=== PATIENT | female | born 1955 | race Two or more races ===

== ENCOUNTER 2022-02-07 17:13 | Emergency (ER) | payer OTHER ==
[~2022-02-07] VITALS: Ht 167.6 cm; Wt 70.0 kg
[2022-02-07] MEDS ORDERED: SODIUM CHLORIDE 0.9% 1,000 ML IV ONE (18:15)
[2022-02-07 18:40] LABS: Basophils # (auto) 0.1 10 ^3/uL (0-0.2); Eosinophils # (auto) 0.2 10 ^3/uL (0-0.8); Hemoglobin 13.9 g/dL (12.2-16.2); Lymphocytes # (auto) 2.9 10 ^3/uL (0.4-5.4); Monocytes # (auto) 0.8 10 ^3/uL (0-1.3); Neutrophils # (auto) 3.7 10 ^3/uL (1.6-8.6); Nucleated Red Blood Cells % 0.1 %; White Blood Cell 7.6 10^3/uL (4.4-10.8)
[2022-02-07 18:41] LABS: Hematocrit 41.4 % (36.0-46.0); Lymphocytes % (auto) 37.8 % (10.0-50.0); Mean Corpuscular Hemoglobin 34.3 pg (28.0-32.0); Mean Corpuscular Hgb Conc. 33.4 g/dL (32.0-36.0); Mean Corpuscular Volume 102.6 fL (80.0-100.0); Monocytes % (auto) 10.4 % (0.0-12.0); Neutrophils % (auto) 48.8 % (37.0-80.0); Red Blood Cells 4.04 10^6/uL (4.0-5.20); Red Cell Distribution Width 14.2 % (11.8-14.3)
[2022-02-07 18:56] LABS: Albumin 3.8 g/dL (3.4-5.0); BUN/Creatinine Ratio 18.4; Calcium 9.1 mg/dL (8.5-10.1)
[2022-02-07 18:59] LABS: Bilirubin, Total 0.4 mg/dL (0.2-1.0); Total Protein 7.2 g/dL (6.4-8.2)
[2022-02-07 19:02] LABS: Potassium 2.7 mmol/L (3.5-5.1)
[2022-02-07] MEDS ORDERED: POTASSIUM CHL 20 Meq TABLET PO ONE (20:30)
[2022-02-07] MEDS ORDERED: ceFAZolin 1GM/50ML 50 ML IV ONE (21:45)
[2022-02-07] MEDS ORDERED: ONDANSETRON HCL 4 MG/2 ML VIAL IV ONE (23:15)
[2022-02-07] MEDS ORDERED: HYDROmorphone HCL 2 MG/ML VL/or syr IV ONE (23:15)
[2022-02-08] MEDS ORDERED: HYDROmorphone HCL 2 MG/ML VL/or syr IV ONE (01:00)
[2022-02-08] MEDS ORDERED: ONDANSETRON HCL 4 MG/2 ML VIAL IV ONE (01:00)
[2022-02-08] MEDS ORDERED: OXYCODONE W/ ACETAMINOPHEN 5/325MG TABLET PO ONE (03:45)
[2022-02-08] MEDS ORDERED: PERCOT PO (04:44)
[2022-02-08] MEDS ORDERED: AMOX500T86 PO (04:44)
[2022-02-08] MEDS ORDERED: OXYM0.0511 NAS (04:44)
[2022-02-08 05:02] VITALS: BP 103/58
== END 2022-02-08 05:10 | disposition home or self-care (01) ==
LOC: ER 17:13 → EDBD 17:13 → ER 02-08 05:02
DX: S02.40DA Maxillary fracture, left side, initial encounter for closed fracture (principal); S01.81XA Laceration without foreign body of other part of head, initial encounter; F10.129 Alcohol abuse with intoxication, unspecified; S06.9X0A Unspecified intracranial injury without loss of consciousness, initial encounter; W18.39XA Other fall on same level, initial encounter; Y93.89 Activity, other specified; Y92.89 Other specified places as the place of occurrence of the external cause; Y99.8 Other external cause status; Y90.8 Blood alcohol level of 240 mg/100 ml or more
CPT/HCPCS: 36415; 70450; 70486; 72125; 80053; 80320; 85025; 96365; 96375; 96376; 99285; J0690; J1170; J2405

== ENCOUNTER 2022-02-10 08:46 | Emergency (ER) | payer OTHER ==
[~2022-02-10] VITALS: Ht 167.6 cm; Wt 66.7 kg
[~2022-02-10 08:46] MED LIST: AMOX500T86 PO; OXYM0.0511 NAS; PERCOT PO
[2022-02-10 09:35] VITALS: BP 123/87
[2022-02-10] MEDS ORDERED: HYDROcodone-ACET 5/325MG TAB PO ONE (10:00)
== END 2022-02-10 10:07 | disposition home or self-care (01) ==
LOC: ER 08:46
DX: S00.83XA Contusion of other part of head, initial encounter (principal); G89.4 Chronic pain syndrome; I10 Essential (primary) hypertension; F17.210 Nicotine dependence, cigarettes, uncomplicated; Z90.710 Acquired absence of both cervix and uterus; Z79.2 Long term (current) use of antibiotics; Z79.899 Other long term (current) drug therapy; X58.XXXA Exposure to other specified factors, initial encounter; Y93.89 Activity, other specified; Y92.89 Other specified places as the place of occurrence of the external cause; Y99.8 Other external cause status